=== PATIENT | female | born 2000 | race African-American/Black ===

== ENCOUNTER 2022-02-23 12:19 | Emergency (ER) | payer SELFPAY ==
[2022-02-23 14:08] LABS: CORONAVIRUS COVID-19 NAA NEGATIVE (NEGATIVE); INFLUENZA A NAA NEGATIVE (NEGATIVE); INFLUENZA B NAA NEGATIVE (NEGATIVE)
== END 2022-02-23 14:56 | disposition home or self-care (01) ==
LOC: MW.ED 12:19
DX: B34.9 Viral infection, unspecified (principal); H83.01 Labyrinthitis, right ear; Z20.822 Contact with and (suspected) exposure to COVID-19
CPT/HCPCS: 0240U; 99284; 99283

== ENCOUNTER 2022-02-27 21:23 | Emergency (ER) | payer SELFPAY ==
[2022-02-27] MEDS ORDERED: Sodium Chloride 0.9% 1,000 ML IV ONE (22:40)
[2022-02-27] MEDS ORDERED: Morphine 4 MG/ML Syringe IVPUSH ONE (22:40)
[2022-02-27] MEDS ORDERED: Ondansetron 4 MG/2 ML SDV IVPUSH ONE (22:40)
[2022-02-27 23:30] LABS: CARBON DIOXIDE,CO2 24.4 mmol/L (21.0-32.0); POTASSIUM,K 3.6 mmol/L (3.5-5.1)
[2022-02-27] MEDS ORDERED: Iopamidol 755 MG/ML 500 ML Multipack Bottle IVPUSH STA (23:57)
== END 2022-02-28 00:40 | disposition home or self-care (01) ==
LOC: MW.ED 21:23
DX: H66.91 Otitis media, unspecified, right ear (principal); D64.9 Anemia, unspecified
CPT/HCPCS: 36415; 74177; 80053; 83690; 83735; 84703; 85025; 96361; 96374; 96375; 99284; J2270; J2405; J7030; Q9967